=== PATIENT | female | born 1990 | race Caucasian/White ===

== ENCOUNTER 2017-04-16 14:27 | Emergency (ER) | payer OTHER ==
[~2017-04-16] VITALS: Ht 172.7 cm; Wt 62.1 kg
[2017-04-16] MEDS ORDERED: Norco 5mg/325mg tab ORAL ONE (14:45)
[2017-04-16] MEDS ORDERED: Ketorolac 30mg Inj IM ONE (14:45)
--- NOTE | 2017-04-16 16:11 | Diagnostic Imaging Report ---
Indication: Reason For Exam: PAIN Technique: 3 views of the right knee Comparison: None Findings: There is a small suprapatellar effusion. Joint spaces are preserved. Impression: Small effusion. No definite acute bony trauma
[2017-04-16] MEDS ORDERED: NORCO 5-325 TA1 EAC1 ORAL (16:18)
[2017-04-16] MEDS ORDERED: NAPROXEN500 M1 ORAL (16:18)
--- NOTE | 2017-04-16 16:21 | Emergency Room Report ---
History of Present Illness General Chief Complaint: Lower Extremity Injury Source: Patient Present Illness HPI 27 y/o female c/o right knee pain x last night. Was with her neice and walked down a step when she injured her right knee. States her knee gave out on her for 7 seconds and caused severe exacerbation of her pain. States she has prior injury and is due for ACL surgery on 04/30/17. Not taking anything for pain. Uses crutches but denies use of knee immobilizer. Patient denies any numbness, tingling, pressure, paralysis, cyanosis, bruising, loss of sensation, or loss of range of motion. Allergies: Coded Allergies: No Known Allergies (Unverified , 04/16/17) Patient History Past Medical History: see triage record Past Surgical History: none Pertinent Family History: none Now: No Immunizations: UTD Reviewed Nursing Documentation: PMH: Agreed, PSxH: Agreed Nursing Documentation-PMH Past Medical History: No Stated History Review of Systems All Other Systems: negative except mentioned in HPI Physical Exam Vital Signs Date Time Temp Pulse Resp B/P (MAP) Pulse Ox O2 Delivery O2 Flow Rate FiO2 04/16/17 14:31 97.9 77 20 126/76 99 Room Air Sp02 EP Interpretation: reviewed, normal General Appearance: no apparent distress, alert, GCS 15, non-toxic Head: normocephalic, atraumatic Eyes: bilateral eye normal inspection, bilateral eye PERRL ENT: no angioedema, normal voice Neck: full range of motion, supple/symm/no masses Respiratory: chest non-tender, lungs clear, normal breath sounds, speaking full sentences Cardiovascular #1: regular rate, rhythm, no edema, normal capillary refill Musculoskeletal: digits/nails normal, gait/station normal, decreased range of motion - due to pain, swelling - of the knee, other - Forrest's with audible pop Neurologic: alert, oriented x3, responsive, motor strength/tone normal, sensory intact, speech normal Psychiatric: judgement/insight normal, memory normal, mood/affect normal, no suicidal/homicidal ideation Skin: normal color, no rash, warm/dry, well hydrated Medical Decision Making PA Attestation Dr. Rich my supervising physician with whom patient management has been discussed with. Diagnostic Impression: Primary Impression: Complete tear of right ACL Qualified Codes: S83.511A - Sprain of anterior cruciate ligament of right knee , initial encounter ER Course Pt. presents to the ED c/o right knee pain Ddx considered but are not limited to fracture, contusion, dislocation, sprain, strain Vital signs: are WNL, pt. is afebrile H&PE are most consistent with right ACL tear ORDERS: XR right knee with effusion ED INTERVENTIONS: Toradol 30, [place]bury 5, Knee immobilizer. DISCHARGE: At this time pt. is stable for d/c to home. Will provide printed patient care instructions, and any necessary prescriptions. Care plan and follow up instructions have been discussed with the patient prior to discharge. Other X-Ray Diagnostic Results Other X-Ray Diagnostic Results : X-Ray ordered: XR Right Knee # of Views/Limited Vs Complete: 3 View Indication: Pain PA Xray: Interpretation reviewed, by supervising MD, and agrees with findings. Interpretation: no fractures, other - +swelling Electronically Signed by: Robin Grewal PA-C Last Vital Signs Date Time Temp Pulse Resp B/P (MAP) Pulse Ox O2 Delivery O2 Flow Rate FiO2 04/16/17 14:31 97.9 77 20 126/76 99 Room Air Disposition: HOME, SELF-CARE Condition: Stable Scripts Naproxen* (NAPROXEN*) 500 Mg Tablet.dr 500 MG ORAL TWICE A DAY for 10 Days, #20 TAB Prov: ROBIN GREWAL P.A. 04/16/17 Hydrocodone Bit/Acetaminophen 5-325* (NORCO 5-325 TABLET*) 1 Each Tablet 1 TAB ORAL Q8HR Y for For Pain for 3 Days, #6 TAB Prov: ROBIN GREWAL.A. 04/16/17 Patient Instructions: Anterior Cruciate Ligament Tear With [facility] Additional Instructions: Takie medication as directed. Patient advised to follow up with primary care provider within next 3-5 days. Keep splint and crutches as directed. Advised patient to use RICE therapy and nsaids as prescribed. Patient is to go to the ER immediately if they experience any pain that is not responding to medication , excess swelling, pressure feeling, loss of color, cyanosis, paralysis, or numbness. ROBIN GREWAL Apr 16, 2017 16:21
[2017-04-16 16:39] VITALS: BP 133/70
== END 2017-04-16 16:39 | disposition home or self-care (01) ==
LOC: EMR 15:04
DX: S83.511A Sprain of anterior cruciate ligament of right knee, initial encounter (principal); W19.XXXA Unspecified fall, initial encounter; Y92.9 Unspecified place or not applicable
CPT/HCPCS: 96372; 99283